=== PATIENT | female | born 1945 | race Caucasian/White ===

== ENCOUNTER 2016-10-06 08:39 | Emergency (ER) | payer MEDICARE ==
[~2016-10-06] VITALS: Ht 160 cm; Wt 70.0 kg
[~2016-10-06 08:39] MED LIST: CIPR250 PO; EFFE37.5 PO; METO25CR PO; NAPR500 PO; QUET100 PO; QUET25 PO; TRIAM.1%T TOPICAL
[2016-10-06 08:42] VITALS: BP 159/75; PULSE 100; RESP 28; TEMP 97.5; O2SAT 90
--- NOTE | 2016-10-06 09:03 | PD ---
Physical Exam Date Seen by Provider: Oct 06, 2016 Time Seen by Provider: 08:57 Narrative Pt is a 71 year old female presenting to the ED with c/o dizziness, SOB, cough, headache. No reported fevers at home. Cough and dizziness since July, SOB since 399 this morning with associated chest tightness. She states her chest feels heavy. Pt was previously evaluated for the vertigo and prescribed medication but her insurance changed and is unable to go back to that provider. She is concerned she is getting worse. Remote tobacco use as a teenager. No hx of COPD, asthma or CHF. She does state she was told she has an enlarged heart. Pt denies any nausea, vomiting, diarrhea. Data Data Last Documented VS Vital Signs Date Time Temp Pulse Resp B/P Pulse Ox O2 Delivery O2 Flow Rate FiO2 10/06/16 08:42 97.5 100 28 159/75 90 Room Air [facility] Supervised Visit with DESTINY: Rosaura Negrete Oct 06, 2016 09:03
--- NOTE | 2016-10-06 09:43 | RADRPT ---
EXAM DATE/TIME: 10/06/2016 09:41 [facility] COMPARISON: No previous studies available for comparison. INDICATIONS : Short of breath and dizziness. MEDICAL HISTORY : Diagnosed with enlarged heat 2016. SURGICAL HISTORY : None. ENCOUNTER: Initial ACUITY: 1 day PAIN SCORE: 0/10 LOCATION: Bilateral chest FINDINGS: PA and lateral views of the chest demonstrate the lungs to be symmetrically aerated without evidence of mass, infiltrate or effusion. The cardiomediastinal contours are unremarkable. Osseous structure s are intact. CONCLUSION: No acute disease. Derick Cisneros MD FACR on October 06, 2016 at 9:41 Board Certified Radiologist. This report was verified electronically.
[2016-10-06 11:13] VITALS: BP 161/85; PULSE 80; RESP 22; O2SAT 96
[2016-10-06] MEDS ORDERED: methylPREDNISolone SOD SUCC 125 MG/2 ML VIAL IVP ONE (11:15)
[2016-10-06] MEDS ORDERED: SODIUM CHLORIDE 0.9% FLUSH 10 ML FLUSH IVF PRN (11:15)
[2016-10-06 11:43] LABS: AUTOMATED NEUTROPHIL # 4.5 TH/MM3 (1.8-7.7); BASOPHIL # 0.1 TH/MM3 (0-0.2); BASOPHIL % 1.1 % (0.0-2.0); EOSINOPHIL # 1.6 TH/MM3 (0-0.4); HEMATOCRIT 36.8 % (35.0-46.0); HEMO FLAGS DIFF FINAL; LYMPH % 22.4 % (9.0-44.0); LYMPHOCYTE # 1.9 TH/MM3 (1.0-4.8); MEAN CELL VOLUME 84.6 FL (80.0-100.0); MEAN CORPUSCULAR HEMOGLOBIN 28.3 PG (27.0-34.0); MEAN CORPUSCULAR HGB CONC 33.5 % (32.0-36.0); MONO % 6.1 % (0.0-8.0); NEUT % 52.4 % (16.0-70.0); PLATELET COUNT 297 TH/MM3 (150-450); RED BLOOD COUNT 4.36 MIL/MM3 (4.00-5.30); RED CELL DISTRIBUTION WIDTH 15.4 % (11.6-17.2); WHITE BLOOD COUNT 8.6 TH/MM3 (4.0-11.0)
[2016-10-06] MEDS: RESP: ALBUTEROL 2.5 MG/IPRATROPIUM 0.5 MG NEB (SCH) INH (11:51)
[2016-10-06 11:52] LABS: INTERNATIONAL NORMALIZED RATIO 0.9 RATIO; PROTHROMBIN TIME - PATIENT 10.3 SEC (9.8-11.6)
[2016-10-06 12:01] LABS: ANION GAP 5 MEQ/L (5-15); BICARBONATE 26.4 MEQ/L (21.0-32.0); BLOOD UREA NITROGEN 29 MG/DL (7-18); CHLORIDE 109 MEQ/L (98-107); GLOMERULAR FILTRATION RATE 53 ML/MIN (>89); MAGNESIUM 2.1 MG/DL (1.5-2.5); SODIUM (NA) 140 MEQ/L (136-145)
[2016-10-06 12:03] LABS: CREATINE KINASE 108 U/L (26-192)
[2016-10-06 12:12] LABS: BLOOD, URINE NEG (NEG); COMMENT (UR) CULT NOT INDICATED; CULTURE IF INDICATED CULT NOT INDICATED; GLUCOSE,URINE NEG (NEG); KETONE, URINE NEG (NEG); MUCUS URINE FEW /lpf (OCC); NITRITE,URINE NEG (NEG); SQUAMOUS EPITHELIAL CELL URINE 2 /hpf (0-5); URINE COLOR YELLOW (YELLW/STRAW)
[2016-10-06 12:15] LABS: CKMB 1.2 NG/ML (0.5-3.6)
[2016-10-06] MEDS ORDERED: VENL37.5 PO (12:39)
[2016-10-06] MEDS ORDERED: SODIUM CHLOR 0.9% 1000 ML INJ 1,000 ML IV ONE (12:45)
--- NOTE | 2016-10-06 13:10 | PD ---
HPI Chief Complaint: Respiratory Symptoms Time Seen by Provider: 13:08 Travel History International Travel<30 days: No Contact w/Intl Traveler<30days: No Traveled to known affect area: No History of Present Illness HPI 71-year-old female presents to the emergency department for evaluation. Patient states that since the end of July she has been having episodes of dizziness, where the room is spinning. These were intermittently but have been happening more frequently. She states that the last few days she feels as though her left eye is "out of control." Her primary care provider has put her on a medication that she is uncertain of the name for vertigo. Patient states she had never had vertigo prior to July. She states this morning at 4 AM she woke up all of a sudden with significant shortness of breath. She states she was unable to reposition herself to breathe more easily he cut she was dizzy every time she moved. She states once she was finally able to set up she was able to catch her breath. Patient has noticed a worsening shortness of breath lately with activity. Denies any chest pain or tightness. No recent illnesses, fever, chills. No history of head trauma no other symptoms to report. PFSH Past Medical History Depression: Yes Cardiovascular Problems: Yes Diminished Hearing: No Endocrine: No Genitourinary: No Immune Disorder: No Implanted Vascular Access Dvce: No Musculoskeletal: No Neurologic: Yes Reproductive: No Respiratory: No Immunizations Current: Yes ?: Not : 1 : 1 Past Surgical History Other Surgery: Yes Social History Alcohol Use: No Tobacco Use: No Substance Use: No Allergies-Medications (Allergen,Severity, Reaction): Coded Allergies: No Known Allergies (Unverified , 10/06/16) Reported Meds & Prescriptions Reported Meds & Active Scripts Active Deltasone (Prednisone) 20 Mg Tab 20 Mg PO BID 5 Days Proair Hfa 8.5 GM Inh (Albuterol Sulfate) 90 Mcg/Act Aer 2 Puff INH Q4HR PRN 108 mcg/actuation Reported Effexor (Venlafaxine HCl) 37.5 Mg Tab 37.5 Mg PO Q12H Review of Systems Except as stated in HPI: all other systems reviewed are Neg Physical Exam Narrative GENERAL: Well-nourished female patient, in no acute distress. SKIN: Focused skin assessment warm/dry. HEAD: Atraumatic. Normocephalic. EYES: Pupils equal and round. No scleral icterus. No injection or drainage. EOMI. No obvious nystagmus. With repetitive lateral eye movement, the patient states that she begins to feel dizzy. ENT: No nasal bleeding or discharge. Mucous membranes pink and moist. NECK: Trachea midline. No JVD. CARDIOVASCULAR: Tachycardic rate and rhythm. No murmur appreciated. RESPIRATORY: No accessory muscle use. Diminished with a faint inspiratory wheeze to auscultation. Breath sounds equal bilaterally. GASTROINTESTINAL: Abdomen soft, non-tender, nondistended. Hepatic and splenic margins not palpable. MUSCULOSKELETAL: No obvious deformities. No clubbing. No cyanosis. No edema. NEUROLOGICAL: Awake and alert. No obvious cranial nerve deficits. Motor grossly within normal limits. Normal speech. PSYCHIATRIC: Appropriate mood and affect; insight and judgment normal. Data Data Last Documented VS Vital Signs Date Time Temp Pulse Resp B/P Pulse Ox O2 Delivery O2 Flow Rate FiO2 10/06/16 14:41 89 20 130/60 98 Room Air 10/06/16 08:42 97.5 Orders Electrocardiogram-Peds (10/06/16 ) Chest, Pa & Lat (10/06/16 ) Complete Blood Count With Diff (10/06/16 11:10) Basic Metabolic Panel (Bmp) (10/06/16 11:10) B-Type Natriuretic Peptide (10/06/16 11:10) Act Partial Throm Time (Ptt) (10/06/16 11:10) Prothrombin Time / Inr (Pt) (10/06/16 11:10) Magnesium (Mg) (10/06/16 11:10) Ckmb (Isoenzyme) Profile (10/06/16 11:10) Troponin I (10/06/16 11:10) Urinalysis - C+S If Indicated (10/06/16 11:10) Influenzae A/B Antigen (10/06/16 11:10) Iv Access Insert/Monitor (10/06/16 11:10) Ecg Monitoring (10/06/16 11:10) Oximetry (10/06/16 11:10) Oxygen Administration (10/06/16 11:10) Sodium Chloride 0.9% Flush (Ns Flush) (10/06/16 11:15) Methylprednisolone So Succ Inj (Solumedr (10/06/16 11:15) Albuterol-Ipratropium Neb (Duoneb Neb) (10/06/16 11:15) Ct Brain W/O Iv Contrast(Rout) (10/06/16 ) Ct Pulmonary Angiogram (10/06/16 ) CKMB (10/06/16 11:20) CKMB% (10/06/16 11:20) Sodium Chlor 0.9% 1000 Ml Inj (Ns 1000 M (10/06/16 12:45) Iohexol 350 Inj (Omnipaque 350 Inj) (10/06/16 13:27) Labs Laboratory Tests Test 10/06/16 10/06/16 11:20 11:45 White Blood Count 8.6 TH/MM3 Red Blood Count 4.36 MIL/MM3 Hemoglobin 12.3 GM/DL Hematocrit 36.8 % Mean Corpuscular Volume 84.6 FL Mean Corpuscular Hemoglobin 28.3 PG Mean Corpuscular Hemoglobin 33.5 % Concent Red Cell Distribution Width 15.4 % Platelet Count 297 TH/MM3 Mean Platelet Volume 8.0 FL Neutrophils (%) (Auto) 52.4 % Lymphocytes (%) (Auto) 22.4 % Monocytes (%) (Auto) 6.1 % Eosinophils (%) (Auto) 18.0 % Basophils (%) (Auto) 1.1 % Neutrophils # (Auto) 4.5 TH/MM3 Lymphocytes # (Auto) 1.9 TH/MM3 Monocytes # (Auto) 0.5 TH/MM3 Eosinophils # (Auto) 1.6 TH/MM3 Basophils # (Auto) 0.1 TH/MM3 CBC Comment DIFF FINAL Differential Comment Prothrombin Time 10.3 SEC Prothromb Time International 0.9 RATIO Ratio Activated Partial 25.0 SEC Thromboplast Time Sodium Level 140 MEQ/L Potassium Level 5.0 MEQ/L Chloride Level 109 MEQ/L Carbon Dioxide Level 26.4 MEQ/L Anion Gap 5 MEQ/L Blood Urea Nitrogen 29 MG/DL Creatinine 1.03 MG/DL Estimat Glomerular Filtration 53 ML/MIN Rate Random Glucose 97 MG/DL Calcium Level 9.9 MG/DL Magnesium Level 2.1 MG/DL Total Creatine Kinase 108 U/L Creatine Kinase MB 1.2 NG/ML Troponin I LESS THAN 0.02 NG/ML B-Type Natriuretic Peptide 98 PG/ML Urine Color YELLOW Urine Turbidity CLEAR Urine pH 5.0 Urine Specific [place] 1.018 Urine Protein NEG mg/dL Urine Glucose (UA) NEG mg/dL Urine Ketones NEG mg/dL Urine Occult Blood NEG Urine Nitrite NEG Urine Bilirubin NEG Urine Urobilinogen LESS THAN 2.0 MG/DL Urine Leukocyte Esterase LARGE Urine RBC 2 /hpf Urine WBC 5 /hpf Urine Squamous Epithelial 2 /hpf Cells Urine Mucus FEW /lpf Microscopic Urinalysis Comment CULT NOT INDICATED MDM Medical Decision Making Medical Screen Exam Complete: Yes Emergency Medical Condition: Yes Medical Record Reviewed: Yes Differential Diagnosis Bronchospasm versus ACS versus CHF versus PE versus electrolyte abnormality Vertigo versus intracranial hemorrhage versus electrolyte abnormality versus neoplasm Narrative Course 71-year-old female presents to emergency department for evaluation. Patient appears without distress. She has ambulatory. Neuro exam is nonfocal. Patient is given DuoNeb treatment and steroids. Chest x-ray is without acute cardiopulmonary disease. CT imaging of the brain and CT pulmonary angiogram are ordered. CBC and BMP are without acute concern. Troponin is less than 0.02. BNP is 98. Urinalysis is with large leukocyte esterase, few mucus. Culture is not indicated. CT pulmonary angiogram shows no pulmonary emboli. No acute intrathoracic process. 2 similar exophytic lesion from the upper pole of the right kidney not consistent with a simple cyst. Further evaluation of MRI is suggested. CT imaging of the brain is without any acute intracranial process. Chest x-ray is with no acute disease. I discussed the patient with my attending physician. Patient is able to ambulate without difficulty. She is encouraged to follow-up with primary care provider. She agrees to return immediately with any acute worsening symptoms. Diagnosis Primary Impression: Shortness of breath on exertion Additional Impressions: Dizziness Kidney lesion Referrals: Primary Care Physician Patient Instructions: Dyspnea (ED), General Instructions, Vertigo (DC) Additional Instructions: Follow-up with a primary care provider Continue medication as already prescribed Outpatient MRI is recommended for further evaluation of abrasion identified on her kidney Return immediately with any acute worsening symptoms Med/Other Pt SpecificInfo: Prescription(s) given Scripts Prednisone (Deltasone)20 Mg Tab20 Mg PO BID 5 Days Ref 0 Prov:Sabrina Julian 10/06/16 Albuterol 8.5 GM Inh (Proair Hfa 8.5 GM Inh)90 Mcg/Act Aer2 Puff INH Q4HR PRN ( SHORTNESS OF BREATH) #1 INHALER Ref 0 108 mcg/actuation Prov:Sabrina Julian 10/06/16 Disposition: 01 DISCHARGE HOME Condition: Stable Sabrina Julian Oct 06, 2016 13:10
[2016-10-06] MEDS ORDERED: IOHEXOL 350 MG/ML 10 ML VIAL (for RAD DIAG) IV ONE (13:27)
--- NOTE | 2016-10-06 13:33 | RADRPT ---
EXAM DATE/TIME: 10/06/2016 13:21 [facility] COMPARISON: No previous studies available for comparison. INDICATIONS : Vertigo. RADIATION DOSE: 58.04 CTDIvol (mGy) MEDICAL HISTORY : Cardiovascular disease. SURGICAL HISTORY : None. ENCOUNTER: Initial ACUITY: 1 day PAIN SCALE: 0/10 LOCATION: cranial TECHNIQUE: Multiple contiguous axial images were obtained of the head. Using automated exposure control and adj ustment of the mA and/or kV according to patient size, radiation dose was kept as low as reasonably a chievable to obtain optimal diagnostic quality images. FINDINGS: CEREBRUM: The ventricles are normal for age. No evidence of midline shift, mass lesion, hemorrhage or acute in farction. No extra-axial fluid collections are seen. POSTERIOR FOSSA: The cerebellum and brainstem are intact. The 4th ventricle is midline. The cerebellopontine angle i s unremarkable. EXTRACRANIAL: The visualized portion of the orbits is intact. SKULL: The calvaria is intact. No evidence of skull fracture. CONCLUSION: 1. No evidence of acute intracranial pathology. No masses are identified. Dionicio Pardo MD on October 06, 2016 at 13:31 Board Certified Radiologist. This report was verified electronically.
--- NOTE | 2016-10-06 13:49 | RADRPT ---
EXAM DATE/TIME: 10/06/2016 13:24 [facility] COMPARISON: CT PULMONARY ANGIOGRAM, May 30, 2016, 11:00. INDICATIONS : Sudden onset of shortness of breath. IV CONTRAST: 75 cc Omnipaque 350 (iohexol) IV RADIATION DOSE: 23.33 CTDIvol (mGy) MEDICAL HISTORY : Cardiovascular disease. SURGICAL HISTORY : None. ENCOUNTER: Initial ACUITY: 1 day PAIN SCALE: 0/10 LOCATION: chest TECHNIQUE: Volumetric scanning of the chest was performed using a pulmonary embolism protocol MIP images were re constructed. Using automated exposure control and adjustment of the mA and/or kV according to patien t size, radiation dose was kept as low as reasonably achievable to obtain optimal diagnostic quality images. FINDINGS: PULMONARY ARTERIES: No filling defects are seen in the pulmonary arteries through the segmental level. LUNGS: Again seen is postinflammatory scarring within the right upper lobe with associated mild bronchiectas is. This is stable. The previously seen areas of nodularity have resolved consistent with prior infla mmatory nodules. No acute infiltrate. PLEURAE: There is no pleural thickening or pleural effusion. MEDIASTINUM: There is good visualization of the great vessels of the middle mediastinum. No evidence of mediastin al or hilar adenopathy/mass. The thyroid gland is enlarged and somewhat nodular in appearance. MUSCULOSKELETAL: Within normal limits for patient age. MISCELLANEOUS: A lesion is seen exophytic from the upper pole the right kidney measuring 2 cm in diameter. Counseled units are 43. It is unchanged from the prior study performed approximately 4 months ago. CONCLUSION: 1. No pulmonary emboli. 2. No acute intrathoracic process. 3. 2 cm exophytic lesion from the upper pole the right kidney not consistent with a simple cyst. Furt her evaluation with MRI is suggested. Tavares Ferrara Jr., MD on October 06, 2016 at 13:36 Board Certified Radiologist. This report was verified electronically.
[2016-10-06] MEDS ORDERED: PRED-503 PO (13:59)
[2016-10-06] MEDS ORDERED: ALBUAER3 INH (13:59)
[2016-10-06 14:41] VITALS: BP 130/60; PULSE 89; RESP 20; O2SAT 98
--- NOTE | 2016-10-06 16:56 | EKG ---
Date Performed: 10/06/2016 Time Performed: 09:46:15 PTAGE: 71 years EKG: Sinus rhythm POSSIBLE RIGHT VENTRICULAR CONDUCTION DELAY BORDERLINE ECG Compared to prior tracing no significant change PREVIOUS TRACING : 04/09/2016 22.29 DOCTOR: Chelsea Walsh Interpretating Date/Time 10/06/2016 16:55:35
== END 2016-10-06 15:27 | disposition home or self-care (01) ==
LOC: NEPE 08:39
DX: R06.02 Shortness of breath (principal); R42 Dizziness and giddiness; Z79.899 Other long term (current) drug therapy
CPT/HCPCS: 70450; 71020; 71275; 80048; 81001; 82550; 82552; 83735; 83880; 84484; 85025; 85610; 85730; 87804; 93005; 94664; 96361; 96374; 99285; J2930; J7030; Q9967